=== PATIENT | female | born 1975 | race African-American/Black ===

== ENCOUNTER 2021-12-30 08:17 | Emergency (ER) | payer BC ==
[~2021-12-30] VITALS: Ht 154.9 cm; Wt 81.2 kg
[~2021-12-30 08:17] MED LIST: BACTRIM DS TAB1 EACH PO; BCP; HYDROCODONE-AP1 EAC6 PO; MACROBID 100 M100 M1 PO; NORCO 5-325 TA1 EACH PO; SENNA S TABLET1 EACH PO; TYLENOL325 MG PO; XANAX 0.25 MG0.25 MG PO
[2021-12-30 08:52] LABS: ABSOLUTE NEUTROPHILS 2.3 thou/uL (1.4-8.2); BASOPHILS 0.8 % (0.0-2.0); EOSINOPHILS 1.9 % (0.0-3.0); HEMATOCRIT 42.1 % (37.0-47.0); HEMOGLOBIN 14.2 gm/dL (12.0-15.0); LYMPHOCYTES 27.4 % (24.0-44.0); MCH 33.3 pg (26.0-34.0); MCHC 33.8 g/dL (28.0-37.0); MCV 98.4 fL (80.0-100.0); MONOCYTES 8.8 % (1.0-8.0); PLATELET COUNT 198 thou/uL (150-400); POLYS 61.1 % (36.0-66.0); RBC 4.28 mil/uL (4.20-5.00); RDW 14.4 % (10.5-14.5); WBC 3.7 thou/uL (4.0-11.0)
[2021-12-30 09:01] LABS: CALCIUM 9.1 mg/dL (8.5-10.1); CREATININE 0.7 mg/dL (0.6-1.0); POTASSIUM 3.7 mmol/L (3.5-5.1)
[2021-12-30 09:08] LABS: ALBUMIN 3.4 g/dL (3.4-5.0); DIRECT BILIRUBIN 0.1 mg/dL (<0.1-0.2); TOTAL BILIRUBIN 0.6 mg/dL (0.2-1.0); TOTAL PROTEIN 7.3 g/dL (6.4-8.2)
[2021-12-30] MEDS ORDERED: PERCOCET 5-3251 EACH PO (10:41)
[2021-12-30 10:48] VITALS: BP 155/99
--- NOTE | 2021-12-30 15:35 | EKG ---
[place] [address] [facility] [email or web address] [address] ELECTROCARDIOGRAM REPORT Name: ARACELI CORDOBA [id number] Admission: 12/30/21 Attend Phys: Discharge: 12/30/21 Date of : 75 Report #: [id number] [facility] ED Test Date: 2021-12-30 Test Time: 08:25:51 Pat Name: ARACELI CORDOBA Department: Room: Gender: F Marketing Account Executive: : 1975 Requested By: Darin Leonard Order Number: [id number] MD: Max Amador Measurements Intervals [place] Rate: 84 P: 30 NV: 175 QRS: -13 QRSD: 88 T: 31 QT: 372 QTc: 440 Interpretive Statements Sinus rhythm Probable left atrial enlargement Probable anterior infarct, old Compared to ECG 05/02/2015 11:42:02 Myocardial infarct finding now present Electronically Signed On 12-30-2021 15:35:35 [employer] by Max Amador [email or web address] <ELECTRONICALLY SIGNED> By: Max Amador MD 12/30/21 1535 0825 4 Max Amador MD /VALERIA
== END 2021-12-30 10:55 | disposition home or self-care (01) ==
LOC: ER 08:17
PROVIDERS: Student in an Organized Health Care Education/Training Program
DX: M25.562 Pain in left knee (principal); M25.511 Pain in right shoulder; I11.0 Hypertensive heart disease with heart failure; I50.9 Heart failure, unspecified; Z98.890 Other specified postprocedural states; V49.29XA Unspecified car occupant injured in collision with other motor vehicles in nontraffic accident, initial encounter; Y93.I9 Activity, other involving external motion; Y92.413 State road as the place of occurrence of the external cause; Y99.8 Other external cause status